=== PATIENT | male | born 1970 | race Caucasian/White ===

== ENCOUNTER 2016-10-09 20:57 | Emergency (ER) | payer OTHER ==
[2016-10-09] MEDS ORDERED: diphenhydrAMINE 50 MG/ML 1 ML VIAL IVP STA (21:13)
[2016-10-09] MEDS ORDERED: methylPREDNISolone SOD SUCCI 125 MG/2 ML VIAL IV STA (21:14)
[2016-10-09] MEDS ORDERED: FAMOTIDINE 20 MG/2 ML VIAL IV STA (21:14)
[2016-10-09 21:23] VITALS: TEMP 98
--- NOTE | 2016-10-09 21:37 | ED ---
Allergic Reaction HPI - General Chief complaint: Allergic Reaction Stated complaint: allergic reaction Time Seen by Provider: 10/09/16 21:12 Source: patient Mode of arrival: ambulatory Limitations: no limitations - History of Present Illness Initial Comments: Patient presents with complaint of ALLERGIC reaction. He was exposed to peanut far. He is ALLERGIC to peanuts. He has some trouble breathing, but no tongue or lip swelling. He has no belly or back pain. He has no chest pain or tenderness. He has no lightheadedness or dizziness. He has no neck pain. He has no rashes. He has taken no medication for this. - Related Data Previous Rx's Medication Instructions Recorded Famotidine [Pepcid] 20 mg PO DAILY #4 tablet 10/09/16 diphenhydrAMINE [Benadryl] 50 mg PO TID #15 capsule 10/09/16 predniSONE 50 mg PO DAILY #4 tab 10/09/16 Allergies Allergy/AdvReac Type Severity Reaction Status Date / Time codeine Allergy Anaphylaxis Verified 10/09/16 21:03 floxacillin Allergy Anaphylaxis Verified 10/09/16 21:03 peanut Allergy Anaphylaxis Verified 10/09/16 21:03 shellfish derived [Shellfish] Allergy Anaphylaxis Verified 10/09/16 21:03 Review of Systems ROS Statement: Those systems with pertinent positive or pertinent negative responses have been documented in the HPI. ROS Other: All systems not noted in ROS Statement are negative. Past Medical History Additional Past Medical History / Comment(s): seasonal allergies History of Any Multi-Drug Resistant Organisms: None Reported Past Surgical History: No Surgical Hx Reported Past Psychological History: No Psychological Hx Reported Smoking Status: Never smoker Past Alcohol Use History: None Reported Past Drug Use History: None Reported General Exam Limitations: no limitations General appearance: alert, in no apparent distress Head exam: Present: atraumatic, normocephalic, normal inspection Eye exam: Present: normal appearance, PERRL, EOMI. Absent: scleral icterus, conjunctival injection, periorbital swelling ENT exam: Present: normal exam, mucous membranes moist Neck exam: Present: normal inspection. Absent: tenderness, meningismus, lymphadenopathy Respiratory exam: Present: normal lung sounds bilaterally. Absent: respiratory distress, wheezes, rales, rhonchi, stridor Cardiovascular Exam: Present: regular rate, normal rhythm, normal heart sounds. Absent: systolic murmur, diastolic murmur, rubs, gallop, clicks GI/Abdominal exam: Present: soft, normal bowel sounds. Absent: distended, tenderness, guarding, rebound, rigid Extremities exam: Present: normal inspection, full ROM, normal capillary refill. Absent: tenderness, pedal edema, joint swelling, calf tenderness Back exam: Present: normal inspection Neurological exam: Present: alert, oriented X3, CN II-XII intact Psychiatric exam: Present: normal affect, normal mood Skin exam: Present: warm, dry, intact, normal color. Absent: rash Course Vital Signs 10/09/16 10/09/16 20:58 21:19 Temperature 98.2 F 98.0 F Pulse Rate 98 80 Respiratory 20 24 Rate Blood Pressure 148/88 145/99 O2 Sat by Pulse 98 97 Oximetry Medical Decision Making - Medical Decision Making Patient complains of ALLERGIC reaction. He is treated with IV Benadryl, steroids, Pepcid. He is feeling better. He is stable for discharge. Disposition Clinical Impression: Allergic reaction Disposition: HOME SELF-CARE Condition: Good Instructions: Allergies (ED) Prescriptions: Famotidine [Pepcid] 20 mg PO DAILY #4 tablet diphenhydrAMINE [Benadryl] 50 mg PO TID #15 capsule predniSONE 50 mg PO DAILY #4 tab Time of Disposition: 21:37
[2016-10-09 22:33] VITALS: BP 120/82; PULSE 74; RESP 20
== END 2016-10-09 22:45 | disposition home or self-care (01) ==
LOC: EC 20:57
DX: T78.1XXA Other adverse food reactions, not elsewhere classified, initial encounter (principal); X58.XXXA Exposure to other specified factors, initial encounter; Z79.899 Other long term (current) drug therapy; Z88.0 Allergy status to penicillin; Z88.5 Allergy status to narcotic agent; Z91.013 Allergy to seafood; Z91.010 Allergy to peanuts
CPT/HCPCS: 96374; 96375; 99283; J1200; J2930

== ENCOUNTER → 2020-05-22 | Outpatient (CLI) | payer BC | END | disposition home or self-care (01) | LOC: LABWHC1 14:20 | PROVIDERS: ATTEND Family Medicine | DX: Z20.828 Contact with and (suspected) exposure to other viral communicable diseases (principal) | CPT/HCPCS: U0003; C9803 ==

== ENCOUNTER → 2022-06-13 | Outpatient (CLI) | payer BC ==
--- NOTE | 2022-06-13 12:41 | CA ---
Exercise Stress Test Report Name: Toya Lima Exam Date: 06/13/2022 08:54 Exam Location: [place] Stress Ht (in): 73 Wt (lb): 205 BSA: 2.17 Ordering Phys: Katalina Silva MD Referring Phys: aaron, Technologist: Trent Powers Age: 51 Gender: M : 1970 Procedure CPT: Indications: R07.89 Chest pain R06.02 Shortness of breath ICD-10 Codes: Patient History: Shortness of breath Medications: Meds past 24 hrs: Pretest Chest Pain: STRESS TEST Alban Protocol Exercise Duration (min:sec): 10:[address] Depressions (mm): Angina Score: Hastings Score: Resting HR (bpm): 77 Peak HR (bpm): 173 Resting BP (mmHg): 115 / 89 Peak BP (mmHg): 171 / 89 MPHR: 169 Target HR: 144 % MPHR: 102 METS: 12.1 Total Dose: Peak Dose: Atropine: Double Product: 37421 BP Response: Stress Termination: Reached target heart rate Stress Symptoms: No chest pain or symptoms Stress Summary: ECG ANALYSIS Resting ECG: Stress ECG: CONCLUSIONS Patient underwent exercise stress EKG with a Alban protocol treadmill stress test. Patient exercised into Stage 3 for a total of 10 minutes reaching a total of 12.1 METS. Patient's maximum heart rate was 173 which represented 100 % age-predicted maximum heart rate. Stress EKG findings: At baseline patient's EKG showed normal sinus rhythm, normal axis, no significant ST or T wave abnormalities. At peak exercise, EKG showed no significant change from baseline. Conclusions: 1. Normal EKG response to exercise without evidence of inducible ischemia. 2. Good exercise capacity. Dr. Matt Torres DO (Electronically Signed) Final Date: 13 June 2022 12:41
== END | disposition home or self-care (01) ==
LOC: RADNMMAIN 08:28
PROVIDERS: ATTEND Family Medicine
DX: R07.89 Other chest pain (principal); R06.02 Shortness of breath
CPT/HCPCS: 93017

== ENCOUNTER 2023-01-16 17:36 | Emergency (ER) | payer BC ==
[2023-01-16] MEDS ORDERED: methylPREDNISolone SOD SUCCI 125 MG/2 ML VIAL IV STA (17:45)
[2023-01-16] MEDS ORDERED: diphenhydrAMINE 50 MG/ML 1 ML VIAL IVP STA (17:45)
[2023-01-16] MEDS ORDERED: FAMOTIDINE 20 MG/2 ML VIAL IV STA (17:45)
[2023-01-16] MEDS ORDERED: SODIUM CHLORIDE 0.9% 1,000 ML IV STA (17:45)
[2023-01-16] MEDS ORDERED: ONDANSETRON 4 MG/2 ML VIAL IVP STA (17:46)
[2023-01-16 18:22] LABS: Basophils % (A) 1 %; Eosinophils # (A) 0.2 k/uL (0-0.7); Eosinophils % (A) 2 %; HCT 45.9 % (39.0-53.0); HGB 15.5 gm/dL (13.0-17.5); Lymphocytes # (A) 2.7 k/uL (1.0-4.8); Lymphocytes % (A) 32 %; MCH 30.9 pg (25.0-35.0); MCHC 33.7 g/dL (31.0-37.0); MCV 91.6 fL (80.0-100.0); Mean Platelet Volume 7.2; Monocytes # (A) 0.5 k/uL (0-1.0); Monocytes % (A) 5 %; Neutrophils # (A) 4.8 k/uL (1.3-7.7); Neutrophils % (A) 58 %; Platelet Count 301 k/uL (150-450); RBC 5.01 m/uL (4.30-5.90); RDW 12.4 % (11.5-15.5); WBC 8.4 k/uL (3.8-10.6)
[2023-01-16 18:33] LABS: African American GFR (CKD) >90 (>60 ml/min/1.73 sqM); Anion Gap 14 mmol/L; Blood Urea Nitrogen 17 mg/dL (9-20); Calcium 9.3 mg/dL (8.4-10.2); Carbon Dioxide 23 mmol/L (22-30); Chloride 102 mmol/L (98-107); Glucose 86 mg/dL (74-99); Non-African American GFR(CKD) 89 (>60 ml/min/1.73 sqM); Potassium 4.1 mmol/L (3.5-5.1); Sodium 139 mmol/L (137-145)
--- NOTE | 2023-01-16 18:45 | XR ---
EXAMINATION TYPE: XR chest 1V portable DATE OF EXAM: 01/16/2023 COMPARISON: None INDICATION: Difficulty breathing TECHNIQUE: Single frontal view of the chest is obtained. FINDINGS: The heart size is normal. The pulmonary vasculature is normal. The lungs are clear. IMPRESSION: 1. No acute pulmonary process.
[2023-01-16 21:04] VITALS: RESP 18
--- NOTE | 2023-01-16 21:10 | ED ---
General Adult HPI - General Chief complaint: Allergic Reaction Stated complaint: allergic reaction Time Seen by Provider: 01/16/23 17:45 Source: patient, RN notes reviewed, old records reviewed Mode of arrival: wheelchair Limitations: no limitations - History of Present Illness Initial comments: Patient is a 52-year-old male with past medical history remarkable for anaphylaxis and peanut ALLERGY, who presents emergency department over concern for anaphylaxis at this time. States he was ordering food from a restaurant where he requested not having any knots but it turns out that the meat was coated in peanut butter for marinade. He ate some, and began having a tingly, itching feeling inside of his mouth until his tongue swelled up. Also is having some nausea as well as itching over the face, chest, hands. Immediately came to the emergency department for evaluation. States this is happened previously and is required medications here in the department but has never required admission or intubation. Denies any chest pain. Denies any abdominal pain but does endorse nausea. Denies any rashes. Endorses some tongue swelling. Denies dif ficulty breathing. Has no other acute complaints this time. States he does have EpiPen at home but did not use one. Presents for further evaluation at this time. - Related Data Home Medications Medication Instructions Recorded Confirmed Cetirizine HCl [Zyrtec] 10 mg PO DAILY 10/09/16 10/09/16 Previous Rx's Medication Instructions Recorded EPINEPHrine [Epipen 2-William] 0.3 mg IJ ONCE #1 auto.injct 10/09/16 Famotidine [Pepcid] 20 mg PO DAILY #4 tablet 10/09/16 diphenhydrAMINE [Benadryl] 50 mg PO TID #15 capsule 10/09/16 predniSONE 50 mg PO DAILY #4 tab 10/09/16 EPINEPHrine (Auto Inject) [Epipen] 0.3 mg IM ONCE PRN #1 each 01/16/23 Famotidine 40 mg PO DAILY 7 Days #7 tablet 01/16/23 predniSONE [Deltasone] 40 mg PO DAILY 4 Days #8 tab 01/16/23 Allergies Allergy/AdvReac Type Severity Reaction Status Date / Time codeine Allergy Anaphylaxis Verified 01/16/23 17:40 peanut Allergy Anaphylaxis Verified 01/16/23 17:40 Quinolones Allergy Anaphylaxis Verified 01/16/23 17:40 shellfish derived [Shellfish] Allergy Anaphylaxis Verified 01/16/23 17:40 Review of Systems ROS Statement: Those systems with pertinent positive or pertinent negative responses have been documented in the HPI. Review of Systems: CONST: Denies fever EYES: Denies blurry vision ENT: Endorses tongue swelling C/V: Denies Chest pain RESP: Denies shortness of breath GI: Endorses nausea : Denies dysuria SKIN: Denies rash. MSK: Denies joint pain. NEURO: Denies headache ROS Other: All systems not noted in ROS Statement are negative. Past Medical History Additional Past Medical History / Comment(s): seasonal allergies History of Any Multi-Drug Resistant Organisms: None Reported Past Surgical History: No Surgical Hx Reported Past Psychological History: No Psychological Hx Reported Smoking Status: Never smoker Past Alcohol Use History: Occasional Past Drug Use History: None Reported General Exam - General Exam Comments Initial Comments: General: Appears in mild distress. HEAD: Normal with no signs of head trauma. EYES: PERRLA, EOMI, conjunctiva normal, no discharge. ENT: Hearing grossly intact. Some mild tongue edema but no posterior oropharyngeal edema. Uvula is midline. No stridor. RESPIRATORY: Clear breath sounds bilaterally. No wheezes, rales, or rhonchi. No hypoxia. No increased work of breathing. C/V: Mild tachycardia. S1 and S2 auscultated, no edema, peripheral pulses 2+ and intact throughout ABD: Abd is soft, nontender, nondistended EXT: Normal range of motion, no obvious deformity SKIN: No rashes or lesions observed on exposed skin. NEURO: Alert and oriented 4. Limitations: no limitations Course Vital Signs 01/16/23 01/16/23 01/16/23 17:37 18:12 19:25 Temperature 97.6 F Pulse Rate 103 H 90 Pulse Rate [ 110 H Retail Associate ] Respiratory 20 18 Rate Blood Pressure 168/94 145/98 O2 Sat by Pulse 100 100 Oximetry 01/16/23 01/16/23 01/16/23 19:37 20:00 21:26 Temperature 98.3 F Pulse Rate 96 93 72 Pulse Rate [ Retail Associate ] Respiratory 16 18 18 Rate Blood Pressure 136/91 139/90 121/77 O2 Sat by Pulse 96 99 99 Oximetry Medical Decision Making - Medical Decision Making Was pt. sent in by a medical professional or institution (, PA, [employer]ER, urgent care, hospital, or correction...) When possible be specific @ -No Did you speak to anyone other than the patient for history (EMS, parent, family, police, friend...)? What history was obtained from this source @ -No Did you review nursing and triage notes (agree or disagree)? Why? @ -I reviewed and agree with nursing and triage notes Were old charts reviewed (outside hosp., previous admission, EMS record, old EKG, old radiological studies, urgent care reports/EKG's, correction records)? Report findings @ -No old charts were reviewed Differential Diagnosis (chest pain, altered mental status, abdominal pain women, abdominal pain men, vaginal bleeding, weakness, fever, dyspnea, syncope, headache, dizziness, GI bleed, back pain, seizure, CVA, palpatations, mental health, musculoskeletal)? @ -ALLERGIC reaction, anaphylaxis, electrolyte abnormality. This list is not all inclusive. EKG interpreted by me (3pts min.). @ -As above X-rays interpreted by me (1pt min.). @ -Chest x-ray shows no obvious acute cardio pulmonary process. CT interpreted by me (1pt min.). @ -None done U/S interpreted by me (1pt. min.). @ -None done What testing was considered but not performed or refused? (CT, X-rays, U/S, labs)? Why? @ -None What meds were considered but not given or refused? Why? @ -None Did you discuss the management of the patient with other professionals (professionals i.e. , PA, [employer]ER, lab, RT, psych nurse, social problems specialist, scientist, teacher, correctional officer lieutenant, case aide)? Give summary @ -No Was smoking cessation discussed for >3mins.? @ -No Was critical care preformed (if so, how long)? @ -Yes, 35 minutes. Were there social determinants of health that impacted care today? How? (Homelessness, low income, unemployed, alcoholism, drug addiction, transportation, low edu. Level, literacy, decrease access to med. care, [facility], rehab)? @ -No Was there de-escalation of care discussed even if they declined (Discuss DNR or withdrawal of care, Hospice)? DNR status @ -No What co-morbidities impacted this encounter? (DM, HTN, Smoking, COPD, CAD, Cancer, CVA, ARF, Chemo, Hep., AIDS, mental health diagnosis, sleep apnea, morbid obesity)? @ -Peanut ALLERGY Was patient admitted / discharged? Hospital course, mention meds given and route, prescriptions, significant lab abnormalities, going to OR and other pertinent info. @ -Based on the patient's presentation and physical exam, he has an itchy sensation over his skin, as well as nausea. No respiratory symptoms at this time. But as it involves to working groups does call ciprofloxacin patient will be administered subcu appendectomy in addition to IV fluids, famotidine, Zofran, Benadryl, Solu-Medrol. Vital signs within acceptable limits at this time. Patient was in agreement this plan. We will obtain basic labs, chest x-ray, screening EKG. Imaging unremarkable. EKG unremarkable. Labs are within acceptable limits. On reevaluation, patient is feeling improved. Symptoms have resolved. He states he feels somewhat jittery which is typical after he receives an EpiPen. We will observe the patient for at least 3 hours here in the department. He was in agreement this plan. On 3 hour observation, patient remains asymptomatic. Has not required re-dosing medications. He'll be discharged home at this time. I will place him on a prednisone prescription in addition to famotidine and a new EpiPen. He has [id number] Benadryl at home. Strict return precautions discussed. Patient was in agreement this plan. I will provide the patient with a prescription for famotidine, prednisone, EpiPen. I instructed the patient to follow up with their PCP in the next 1-3 days. I explained that the patient should return to the emergency department if they experience any worsening symptoms. Strict return precautions were discussed with the patient. The patient expressed understanding of these instructions. I answered all questions that the patient had. The patient was discharged home in good condition with their prescriptions and follow up information. Undiagnosed new problem with uncertain prognosis? @ -No Drug Therapy requiring intensive monitoring for toxicity (Heparin, Nitro, Insulin, Cardizem)? @ -No Were any procedures done? @ -No Diagnosis/symptom? @ -ALLERGIC reaction, anaphylaxis Acute, or Chronic, or Acute on Chronic? @ -Acute Uncomplicated (without systemic symptoms) or Complicated (systemic symptoms)? @ -Complicated Side effects of treatment? @ -No Exacerbation, Progression, or Severe Exacerbation? @ -No Poses a threat to life or bodily function? How? (Chest pain, [place], NH, pneumonia, PE, COPD, DKA, ARF, appy, cholecystitis, CVA, Diverticulitis, Homicidal, Suicidal, threat to staff... and all critical care pts) @ -Yes, if untreated. - Lab Data Result diagrams: 01/16/23 18:06 01/16/23 18:06 Lab Results 01/16/23 01/16/23 Range/Units 18:06 18:06 WBC 8.4 (3.8-10.6) k/uL RBC 5.01 (4.30-5.90) m/uL Hgb 15.5 (13.0-17.5) gm/dL Hct 45.9 (39.0-53.0) % MCV 91.6 (80.0-100.0) fL MCH 30.9 (25.0-35.0) pg MCHC 33.7 (31.0-37.0) g/dL RDW 12.4 (11.5-15.5) % Plt Count 301 (150-450) k/uL MPV 7.2 Neutrophils % 58 % Lymphocytes % 32 % Monocytes % 5 % Eosinophils % 2 % Basophils % 1 % Neutrophils # 4.8 (1.3-7.7) k/uL Lymphocytes # 2.7 (1.0-4.8) k/uL Monocytes # 0.5 (0-1.0) k/uL Eosinophils # 0.2 (0-0.7) k/uL Basophils # 0.0 (0-0.2) k/uL Sodium 139 (137-145) mmol/L Potassium 4.1 (3.5-5.1) mmol/L Chloride 102 (98-107) mmol/L Carbon Dioxide 23 (22-30) mmol/L Anion Gap 14 mmol/L BUN 17 (9-20) mg/dL Creatinine 0.98 (0.66-1.25) mg/dL Est GFR (CKD-EPI)AfAm >90 (>60 ml/min/1.73 sqM) Est GFR (CKD-EPI)NonAf 89 (>60 ml/min/1.73 sqM) Glucose 86 (74-99) mg/dL Calcium 9.3 (8.4-10.2) mg/dL - EKG Data -: EKG Interpreted by Me EKG Comments: 12-lead Electrocardiogram Interpretation Note EKG was reviewed and interpreted by myself. 12-lead ECG performed at 1919 is interpreted by me as revealing sinus tachycardia at a rate of 100 beats per minute. [place] is normal. [place] Intervals 161 ms, QRS duration is 93 ms, QTc is 419 ms.. There were no ST or T wave abnormalities to suggest myocardial ischemia or injury. R wave progression across the precordium was satisfactory. By my interpretation this EKG is non-diagnostic for acute ischemia. Disposition Clinical Impression: Allergic reaction, Anaphylaxis Disposition: HOME SELF-CARE Condition: Good Instructions (If sedation given, give patient instructions): Anaphylaxis (ED) Prescriptions: predniSONE [Deltasone] 40 mg PO DAILY 4 Days #8 tab EPINEPHrine (Auto Inject) [Epipen] 0.3 mg IM ONCE PRN #1 each PRN Reason: Anaphylaxis Famotidine 40 mg PO DAILY 7 Days #7 tablet Is patient prescribed a controlled substance at d/c from ED?: No Referrals: Katalina Silva III, MD [Primary Care Provider] - 1-2 days Time of Disposition: 20:52
[2023-01-16 21:26] VITALS: BP 121/77; PULSE 72; TEMP 98.3
== END 2023-01-16 21:27 | disposition home or self-care (01) ==
LOC: EC 17:36
DX: T78.01XA Anaphylactic reaction due to peanuts, initial encounter (principal); Z91.010 Allergy to peanuts; Z91.013 Allergy to seafood; Z88.5 Allergy status to narcotic agent; Z88.8 Allergy status to other drugs, medicaments and biological substances
CPT/HCPCS: 99284; 96374 ×2; 96375 ×4; 96361 ×2; 96372 ×2; 36415; 93005; 80048; 85025; 71045; 99285; J0171; J1200; J2930; J2405

== ENCOUNTER 2023-01-17 06:01 | Emergency (ER) | payer BC ==
--- NOTE | 2023-01-17 06:33 | ED ---
Allergic Reaction HPI - General Chief complaint: Allergic Reaction Stated complaint: Allergic Reaction Time Seen by Provider: 01/17/23 06:04 Source: patient, RN notes reviewed, old records reviewed Mode of arrival: ambulatory Limitations: no limitations - History of Present Illness Initial Comments: This is an anxious 52-year-old male that presents ambulatory with complaints of anaphylaxis. 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 He was given epinephrine steroids and Benadryl at that time then discharged home. States he was prescribed steroids but unable to obtain these medications as pharmacies were closed yesterday. Last night he took another 50 mg of Benadryl and again at 3:00 this morning for itching of his face hands and body with no improvement. Patient states he does feel anxious and he is not sure if he is feeling tingling in his throat. States that he does feel short of breath. No nausea or vomiting. MD Complaint: allergic reaction -: days(s) Exposure: other (peanuts) Symptoms: itching (body, face and hands), difficulty breathing Treatment Prior to Arrival: benadryl (50mg last night and 50mg at 0300 today), other (seen yesterday for same given epi and steroids) Previous Allergy History: anaphylaxis - Related Data Home Medications Medication Instructions Recorded Confirmed Cetirizine HCl [Zyrtec] 10 mg PO DAILY 10/09/16 10/09/16 Previous Rx's Medication Instructions Recorded EPINEPHrine [Epipen 2-William] 0.3 mg IJ ONCE #1 auto.injct 10/09/16 Famotidine [Pepcid] 20 mg PO DAILY #4 tablet 10/09/16 diphenhydrAMINE [Benadryl] 50 mg PO TID #15 capsule 10/09/16 predniSONE 50 mg PO DAILY #4 tab 10/09/16 EPINEPHrine (Auto Inject) [Epipen] 0.3 mg IM ONCE PRN #1 each 01/16/23 Famotidine 40 mg PO DAILY 7 Days #7 tablet 01/16/23 predniSONE [Deltasone] 40 mg PO DAILY 4 Days #8 tab 01/16/23 Allergies Allergy/AdvReac Type Severity Reaction Status Date / Time codeine Allergy Anaphylaxis Verified 01/16/23 17:40 peanut Allergy Anaphylaxis Verified 01/16/23 17:40 Quinolones Allergy Anaphylaxis Verified 01/16/23 17:40 shellfish derived [Shellfish] Allergy Anaphylaxis Verified 01/16/23 17:40 Review of Systems ROS Statement: Those systems with pertinent positive or pertinent negative responses have been documented in the HPI. ROS Other: All systems not noted in ROS Statement are negative. Past Medical History Additional Past Medical History / Comment(s): seasonal allergies History of Any Multi-Drug Resistant Organisms: None Reported Past Surgical History: No Surgical Hx Reported Past Psychological History: No Psychological Hx Reported Smoking Status: Never smoker Past Alcohol Use History: Occasional Past Drug Use History: None Reported General Exam Limitations: no limitations General appearance: alert, in no apparent distress Head exam: Present: atraumatic, normocephalic Eye exam: Present: normal appearance. Absent: scleral icterus, conjunctival injection, periorbital swelling ENT exam: Present: normal oropharynx, mucous membranes moist Neck exam: Present: normal inspection, full ROM. Absent: tenderness, meningismus Respiratory exam: Present: normal lung sounds bilaterally. Absent: respiratory distress, wheezes, accessory muscle use Cardiovascular Exam: Present: tachycardia GI/Abdominal exam: Present: soft Extremities exam: Present: full ROM, normal capillary refill. Absent: pedal edema Neurological exam: Present: alert, oriented X3, CN II-XII intact, normal gait Psychiatric exam: Present: anxious Skin exam: Present: warm, dry, normal color. Absent: cyanosis, diaphoretic, pallor Course Vital Signs 01/17/23 01/17/23 01/17/23 06:11 06:13 07:26 Temperature 97.6 F 98.3 F Pulse Rate 115 H 94 Respiratory 20 22 18 Rate Blood Pressure 122/71 129/82 O2 Sat by Pulse 96 97 Oximetry 01/17/23 08:28 Temperature Pulse Rate 101 H Respiratory 18 Rate Blood Pressure 123/88 O2 Sat by Pulse 98 Oximetry Medical Decision Making - Medical Decision Making Was pt. sent in by a medical professional or institution (, PA, SCREEN STRETCHER, urgent care, hospital, or senior care...) When possible be specific @ -No Did you speak to anyone other than the patient for history (EMS, parent, family, police, friend...)? What history was obtained from this source @ -No Did you review nursing and triage notes (agree or disagree)? Why? @ -I reviewed and agree with nursing and triage notes Were old charts reviewed (outside hosp., previous admission, EMS record, old EKG, old radiological studies, urgent care reports/EKG's, senior care records)? Report findings @ -Yesterday ER visit notes reviewed Differential Diagnosis (chest pain, altered mental status, abdominal pain women, abdominal pain men, vaginal bleeding, weakness, fever, dyspnea, syncope, headache, dizziness, GI bleed, back pain, seizure, CVA, palpatations, mental health, musculoskeletal)? @ -Anaphylaxis, anxiety, adverse drug reaction EKG interpreted by me (3pts min.). @ -n/a X-rays interpreted by me (1pt min.). @ -None done CT interpreted by me (1pt min.). @ -None done U/S interpreted by me (1pt. min.). @ -None done What testing was considered but not performed or refused? (CT, X-rays, U/S, labs)? Why? @ -None What meds were considered but not given or refused? Why? @ -Epinephrine was considered however patient denies any difficulty in breathing at this time, no signs of anaphylaxis. Did you discuss the management of the patient with other professionals (professionals i.e. , PA, SCREEN STRETCHER, lab, RT, psych nurse, adoption social worker, silviculture teacher, teacher, command center officer, family caseworker)? Give summary @ -No Was smoking cessation discussed for >3mins.? @ -No Was critical care preformed (if so, how long)? @ -No Were there social determinants of health that impacted care today? How? (Homelessness, low income, unemployed, alcoholism, drug addiction, transportation, low edu. Level, literacy, decrease access to med. care, correction, rehab)? @ -No Was there de-escalation of care discussed even if they declined (Discuss DNR or withdrawal of care, Hospice)? DNR status @ -No What co-morbidities impacted this encounter? (DM, HTN, Smoking, COPD, CAD, Cancer, CVA, ARF, Chemo, Hep., AIDS, mental health diagnosis, sleep apnea, morbid obesity)? @ -Anxiety Was patient admitted / discharged? Hospital course, mention meds given and route, prescriptions, significant lab abnormalities, going to OR and other pertinent info. @ -Discharged. Patient was seen for anaphylaxis from peanut ALLERGY yesterday. States that he woke up this morning feeling symptoms returning. He did take 50 mg of Benadryl last night and again 50 mg at 3:00 this morning. He states that he is anxious and is not sure if he feels tingling in his mouth and throat. He did not use his EpiPen. He states he was given epinephrine and steroids yesterday while in the hospital. He did not get the medication filled as the pharmacies were closed when he left the hospital yesterday. Patient was given Pepcid and Solu-Medrol in the emergency room with resolution of his symptoms. He was directed not to take more than 50 mg of Benadryl every 6 hours. This is likely the cause of his symptoms in addition to his ALLERGIC reaction to peanuts yesterday. Patient also admits to having some anxiety over anaphylaxis. He denies any chest pain, nausea vomiting or difficulty breathing at this time. Vital signs are stable. He was prescribed Pepcid and prednisone yesterday was directed to fill these prescriptions at the pharmacy today. Start the prednisone tomorrow as he was given a dose of Solu-Medrol today. Patient states understanding. Case discussed with Dr. Mccabe. Undiagnosed new problem with uncertain prognosis? @ -No Drug Therapy requiring intensive monitoring for toxicity (Heparin, Nitro, Insulin, Cardizem)? @ -No Were any procedures done? @ -No Diagnosis/symptom? @ -ALLERGIC reaction Acute, or Chronic, or Acute on Chronic? @ -Acute Uncomplicated (without systemic symptoms) or Complicated (systemic symptoms)? @ -Uncomplicated Side effects of treatment? @ -No Exacerbation, Progression, or Severe Exacerbation? @ -No Poses a threat to life or bodily function? How? (Chest pain, [place], [place], pneumonia, PE, COPD, DKA, ARF, appy, cholecystitis, CVA, Diverticulitis, Homicidal, Suicidal, threat to staff... and all critical care pts) @ -No Disposition Clinical Impression: Allergic reaction Disposition: HOME SELF-CARE Condition: Good Instructions (If sedation given, give patient instructions): Anaphylaxis (ED) Additional Instructions: Increase your fluid intake. Take Pepcid twice a day and prednisone once a day as prescribed yesterday. Do not start the prednisone until Thursday as your were given a dose of Solu-Medrol in the emergency room again today. He can take Benadryl 25-50 mg every 6 hours as needed. Do not exceed this dosing. If difficulty breathing or sensation of throat closing please use your EpiPen and come to the emergency room for reevaluation. For wheezing please use your albuterol inhaler. If any new or concerning symptoms return to the emergency room. Is patient prescribed a controlled substance at d/c from ED?: No Referrals: Katalina Silva III, MD [Primary Care Provider] - 1-2 days Time of Disposition: 08:15
[2023-01-17] MEDS ORDERED: FAMOTIDINE 20 MG/2 ML VIAL IV STA (06:36)
[2023-01-17] MEDS ORDERED: methylPREDNISolone SOD SUCCI 125 MG/2 ML VIAL IV STA (06:54)
[2023-01-17 07:28] VITALS: RESP 18; TEMP 98.3
[2023-01-17 08:30] VITALS: BP 123/88; PULSE 101
== END 2023-01-17 08:30 | disposition home or self-care (01) ==
LOC: EC 06:01
DX: T78.2XXA Anaphylactic shock, unspecified, initial encounter (principal); Z88.5 Allergy status to narcotic agent; Z91.010 Allergy to peanuts; Z91.013 Allergy to seafood; Z88.8 Allergy status to other drugs, medicaments and biological substances
CPT/HCPCS: 99283; 96374; 96375; J2930

== ENCOUNTER 2024-10-17 20:23 | Emergency (ER) | payer BC ==
[2024-10-17 20:36] VITALS: RESP 16; TEMP 98.4
--- NOTE | 2024-10-17 21:05 | ED ---
Eye Problem HPI - General Chief complaint: Eye Problems Stated complaint: Blurry Vision Time Seen by Provider: 10/17/24 20:38 Source: patient Mode of arrival: ambulatory Limitations: no limitations - History of Present Illness Initial comments: 54-year-old male presenting with chief complaint of headache and vision disturbance. Patient reports that for the last 2 nights around 6:30 PM he has had a pressure-like headache over the sinus region that is worse when he coughs. He has also had about 30 minutes worth of blurred vision over the peripheral p ortion of the right eye. He describes this as though he is looking through a prism through the side of his eye. He has had no vision loss. His vision later returns to normal. Patient does wear contacts or glasses daily. He is having no eyeball pain. No redness or injuries. Tearing or discharge. No chest pain. He states that he had some mild shortness of breath this evening but he thinks it may have been due to anxiety. No nausea vomiting or abdominal pain. No numbness tingling or weakness. He states that he recently finished a course of steroids and is still currently on an antibiotic prescribed to him for his persistent sinus pressure. - Related Data Home Medications Medication Instructions Recorded Confirmed Cetirizine HCl [Zyrtec] 10 mg PO DAILY 10/09/16 10/09/16 Previous Rx's Medication Instructions Recorded EPINEPHrine [Epipen 2-William] 0.3 mg IJ ONCE #1 auto.injct 10/09/16 Famotidine [Pepcid] 20 mg PO DAILY #4 tablet 10/09/16 diphenhydrAMINE [Benadryl] 50 mg PO TID #15 capsule 10/09/16 predniSONE 50 mg PO DAILY #4 tab 10/09/16 EPINEPHrine (Auto Inject) [Epipen] 0.3 mg IM ONCE PRN #1 each 01/16/23 Famotidine 40 mg PO DAILY 7 Days #7 tablet 01/16/23 predniSONE [Deltasone] 40 mg PO DAILY 4 Days #8 tab 01/16/23 Allergies Allergy/AdvReac Type Severity Reaction Status Date / Time codeine Allergy Anaphylaxis Verified 10/17/24 20:36 peanut Allergy Anaphylaxis Verified 10/17/24 20:36 Quinolones Allergy Anaphylaxis Verified 10/17/24 20:36 shellfish derived [Shellfish] Allergy Anaphylaxis Verified 10/17/24 20:36 Review of Systems ROS Statement: Those systems with pertinent positive or pertinent negative responses have been documented in the HPI. ROS Other: All systems not noted in ROS Statement are negative. Past Medical History Additional Past Medical History / Comment(s): seasonal allergies History of Any Multi-Drug Resistant Organisms: None Reported Past Surgical History: No Surgical Hx Reported Past Psychological History: No Psychological Hx Reported Smoking Status: Never smoker Past Alcohol Use History: Occasional Past Drug Use History: None Reported General Exam Limitations: no limitations General appearance: alert, in no apparent distress Head exam: Present: atraumatic, normocephalic, normal inspection Eye exam: Present: normal appearance, PERRL, EOMI. Absent: conjunctival injection, periorbital swelling Pupils: Present: normal accommodation Expanded Eyelids: Normal Inspection: Bilateral Pupils: Regular, Round: Bilateral, Reactive: Bilateral Sclera/Conjunctival: Normal Inspection: Bilateral IOP (R) in mmH IOP (L) in mmH Neck exam: Present: normal inspection. Absent: meningismus Respiratory exam: Present: normal lung sounds bilaterally. Absent: respiratory distress, wheezes, rales, rhonchi, stridor Cardiovascular Exam: Present: regular rate, normal rhythm, normal heart sounds. Absent: systolic murmur, diastolic murmur, rubs, gallop, clicks Neurological exam: Present: alert, oriented X3 Expanded Patient oriented to: Present: person, place, time Speech: Present: fluid speech Cranial nerves: EOM's Intact: Normal Cerebellar function: Finger to Nose: Normal, Heel to [place]: Normal Eye Response: (4) open spontaneously Motor Response: (6) obeys commands Verbal Response: (5) oriented Mauricio Total: 15 Psychiatric exam: Present: normal affect, normal mood Skin exam: Present: warm, dry, normal color Course Vital Signs 10/17/24 10/17/24 10/17/24 20:32 21:30 23:16 Temperature 98.4 F Pulse Rate 82 76 77 Respiratory 16 18 16 Rate Blood Pressure 153/93 140/86 126/79 O2 Sat by Pulse 99 99 99 Oximetry Medical Decision Making - Medical Decision Making Sinus rhythm ventricular rate 68. NH interval 159. QRS 93. QT 392. QTc 410 Was pt. sent in by a medical professional or institution (, PA, BILINGUAL KINDERGARTEN TEACHER, urgent care, hospital, or assisted...) When possible be specific @ -No Did you speak to anyone other than the patient for history (EMS, parent, family, police, friend...)? What history was obtained from this source @ -No Did you review nursing and triage notes (agree or disagree)? Why? @ -I reviewed and agree with nursing and triage notes Were old charts reviewed (outside hosp., previous admission, EMS record, old EKG, old radiological studies, urgent care reports/EKG's, assisted records)? Report findings @ -No old charts were reviewed Differential Diagnosis (chest pain, altered mental status, abdominal pain women, abdominal pain men, vaginal bleeding, weakness, fever, dyspnea, syncope, headache, dizziness, GI bleed, back pain, seizure, CVA, palpatations, mental h ealth, musculoskeletal)? @ -Differential includes retinal detachment/thinning, intracranial hemorrhage, intracranial mass, CVA, TIA, ocular migraine, not an all-inclusive list EKG interpreted by me (3pts min.). @ -As above X-rays interpreted by me (1pt min.). @ -None done CT interpreted by me (1pt min.). @ -CT shows no acute intracranial abnormality U/S interpreted by me (1pt. min.). @ -None done What testing was considered but not performed or refused? (CT, X-rays, U/S, labs)? Why? @ -None What meds were considered but not given or refused? Why? @ -None Did you discuss the management of the patient with other professionals (professionals i.e. , PA, BILINGUAL KINDERGARTEN TEACHER, lab, RT, psych nurse, clinical social work therapist, veneer slicing machine operator, teacher, vice squad police officer, case worker)? Give summary @ -No Was smoking cessation discussed for >3mins.? @ -No Was critical care preformed (if so, how long)? @ -No Were there social determinants of health that impacted care today? How? (Homelessness, low income, unemployed, alcoholism, drug addiction, transportation, low edu. Level, literacy, decrease access to med. care, fci, rehab)? @ -No Was there de-escalation of care discussed even if they declined (Discuss DNR or withdrawal of care, Hospice)? DNR status @ -No What co-morbidities impacted this encounter? (DM, HTN, Smoking, COPD, CAD, Cancer, CVA, ARF, Chemo, Hep., AIDS, mental health diagnosis, sleep apnea, morbid obesity)? @ -None Was patient admitted / discharged? Hospital course, mention meds given and route , prescriptions, significant lab abnormalities, going to OR and other pertinent info. @ -54-year-old male presenting with chief complaint of headache and blurred vision in the periphery of his right eye. This occurred a separate episodes in the evening for the past 2 nights. History and physical examination are conducted. GCS is 15 with no focal neurological deficits. Lab work is grossly unremarkable. CT is negative for acute intracranial process. Patient refused CTA as he was concerned about shellfish allergy and family history of iodine allergy. On reassessment patient is feeling well showing no acute signs of distress. He is educated on today's findings. I offered admission, patient would prefer to follow-up outpatient which I believe is reasonable. He is instructed to follow-up with his PCP as he may need an MRI. He is also instructed to follow-up with ophthalmology. Follow-up with PCP. Report back to ER with any new or worsening symptoms. Discussed return parameters and answered all questions. Patient conveyed verbal understanding and agreed to the plan. I discussed this case in detail with my attending Dr. Prieto Undiagnosed new problem with uncertain prognosis? @ -No Drug Therapy requiring intensive monitoring for toxicity (Heparin, Nitro, Insulin, Cardizem)? @ -No Were any procedures done? @ -No Diagnosis/symptom? @ -Blurred vision Acute, or Chronic, or Acute on Chronic? @ -Acute Uncomplicated (without systemic symptoms) or Complicated (systemic symptoms)? @ -Uncomplicated Side effects of treatment? @ -No Exacerbation, Progression, or Severe Exacerbation? @ -No Poses a threat to life or bodily function? How? (Chest pain, [place], [place], pneumonia, PE, COPD, DKA, ARF, appy, cholecystitis, CVA, Diverticulitis, Homicidal, Suicidal, threat to staff... and all critical care pts) @ -Low likelihood - Lab Data Result diagrams: 10/17/24 21:37 10/17/24 21:37 Lab Results 10/17/24 10/17/24 10/17/24 Range/Units 21:37 21:37 21:37 WBC 8.7 (3.8-10.6) k/uL RBC 4.94 (4.30-5.90) m/uL Hgb 15.0 (13.0-17.5) gm/dL Hct 45.7 (39.0-53.0) % MCV 92.5 (80.0-100.0) fL MCH 30.4 (25.0-35.0) pg MCHC 32.9 (31.0-37.0) g/dL RDW 12.6 (11.5-15.5) % Plt Count 299 (150-450) k/uL MPV 6.8 Neutrophils % 51 % Lymphocytes % 37 % Monocytes % 8 % Eosinophils % 2 % Basophils % 1 % Neutrophils # 4.4 (1.3-7.7) k/uL Lymphocytes # 3.2 (1.0-4.8) k/uL Monocytes # 0.7 (0-1.0) k/uL Eosinophils # 0.2 (0-0.7) k/uL Basophils # 0.1 (0-0.2) k/uL PT 10.4 (10.0-12.5) sec INR 0.9 (<1.2) APTT 22.1 (22.0-30.0) sec Sodium 139 (137-145) mmol/L Potassium 4.0 (3.5-5.1) mmol/L Chloride 103 (98-107) mmol/L Carbon Dioxide 27 (22-30) mmol/L Anion Gap 9 mmol/L BUN 16 (9-20) mg/dL Creatinine 1.00 (0.66-1.25) mg/dL Est GFR (CKD-EPI)AfAm >90 (>60 ml/min/1.73 sqM) Est GFR (CKD-EPI)NonAf 85 (>60 ml/min/1.73 sqM) Glucose 91 (74-99) mg/dL Calcium 9.4 (8.4-10.2) mg/dL Total Bilirubin 1.0 (0.2-1.3) mg/dL AST 25 (17-59) U/L ALT 27 (4-49) U/L Alkaline Phosphatase 71 (38-126) U/L Troponin I (0.000-0.034) ng/mL Total Protein 6.6 (6.3-8.2) g/dL Albumin 4.2 (3.5-5.0) g/dL Influenza Type A (PCR) (Not Detectd) Influenza Type B (PCR) (Not Detectd) RSV (PCR) (Not Detectd) SARS-CoV-2 (PCR) (Not Detectd) 10/17/24 10/17/24 Range/Units 21:37 21:37 WBC (3.8-10.6) k/uL RBC (4.30-5.90) m/uL Hgb (13.0-17.5) gm/dL Hct (39.0-53.0) % MCV (80.0-100.0) fL MCH (25.0-35.0) pg MCHC (31.0-37.0) g/dL RDW (11.5-15.5) % Plt Count (150-450) k/uL MPV Neutrophils % % Lymphocytes % % Monocytes % % Eosinophils % % Basophils % % Neutrophils # (1.3-7.7) k/uL Lymphocytes # (1.0-4.8) k/uL Monocytes # (0-1.0) k/uL Eosinophils # (0-0.7) k/uL Basophils # (0-0.2) k/uL PT (10.0-12.5) sec INR (<1.2) APTT (22.0-30.0) sec Sodium (137-145) mmol/L Potassium (3.5-5.1) mmol/L Chloride (98-107) mmol/L Carbon Dioxide (22-30) mmol/L Anion Gap mmol/L BUN (9-20) mg/dL Creatinine (0.66-1.25) mg/dL Est GFR (CKD-EPI)AfAm (>60 ml/min/1.73 sqM) Est GFR (CKD-EPI)NonAf (>60 ml/min/1.73 sqM) Glucose (74-99) mg/dL Calcium (8.4-10.2) mg/dL Total Bilirubin (0.2-1.3) mg/dL AST (17-59) U/L ALT (4-49) U/L Alkaline Phosphatase (38-126) U/L Troponin I <0.012 (0.000-0.034) ng/mL Total Protein (6.3-8.2) g/dL Albumin (3.5-5.0) g/dL Influenza Type A (PCR) Not Detected (Not Detectd) Influenza Type B (PCR) Not Detected (Not Detectd) RSV (PCR) Not Detected (Not Detectd) SARS-CoV-2 (PCR) Not Detected (Not Detectd) Disposition Clinical Impression: Blurred vision Disposition: HOME SELF-CARE Condition: Good Instructions (If sedation given, give patient instructions): Blurred Vision (ED) Additional Instructions: Follow-up with PCP and power shovel engineer. Report back to ER with any new or worsening symptoms. Is patient prescribed a controlled substance at d/c from ED?: No Referrals: Salvatore Millan MD [Primary Care Provider] - 1-2 days Margarito Ramirez MD [STAFF PHYSICIAN] - 1-2 days Time of Disposition: 23:18
[2024-10-17 21:48] LABS: Basophils # (A) 0.1 k/uL (0-0.2); Basophils % (A) 1 %; Eosinophils # (A) 0.2 k/uL (0-0.7); Eosinophils % (A) 2 %; HCT 45.7 % (39.0-53.0); Lymphocytes # (A) 3.2 k/uL (1.0-4.8); Lymphocytes % (A) 37 %; MCH 30.4 pg (25.0-35.0); MCHC 32.9 g/dL (31.0-37.0); MCV 92.5 fL (80.0-100.0); Mean Platelet Volume 6.8; Monocytes # (A) 0.7 k/uL (0-1.0); Monocytes % (A) 8 %; Neutrophils # (A) 4.4 k/uL (1.3-7.7); Neutrophils % (A) 51 %; Platelet Count 299 k/uL (150-450); RBC 4.94 m/uL (4.30-5.90); RDW 12.6 % (11.5-15.5); WBC 8.7 k/uL (3.8-10.6)
[2024-10-17] MEDS: SODIUM CHLORIDE 0.9% 1,000 ML IV STA (21:49)
[2024-10-17 22:00] LABS: ALT 27 U/L (4-49); AST 25 U/L (17-59); African American GFR (CKD) >90 (>60 ml/min/1.73 sqM); Albumin 4.2 g/dL (3.5-5.0); Alkaline Phosphatase 71 U/L (38-126); Anion Gap 9 mmol/L; Blood Urea Nitrogen 16 mg/dL (9-20); Calcium 9.4 mg/dL (8.4-10.2); Carbon Dioxide 27 mmol/L (22-30); Chloride 103 mmol/L (98-107); Glucose 91 mg/dL (74-99); Non-African American GFR(CKD) 85 (>60 ml/min/1.73 sqM); Sodium 139 mmol/L (137-145); Total Protein 6.6 g/dL (6.3-8.2)
[2024-10-17 22:04] LABS: INR 0.9 (<1.2); Partial Thromboplastin Time 22.1 sec (22.0-30.0); Prothrombin Time 10.4 sec (10.0-12.5)
[2024-10-17 22:29] LABS: Influenza A Not Detected (Not Detectd); Influenza B Not Detected (Not Detectd); RSV Not Detected (Not Detectd)
--- NOTE | 2024-10-17 22:31 | CT ---
EXAM: CT Head Without Intravenous Contrast CLINICAL HISTORY: ITS.REASON CT Reason: headache, visual disturbance TECHNIQUE: Axial computed tomography images of the head/brain without intravenous contrast. CTDI is 49.2 mGy and DLP is 1174.3 mGy-cm. This CT exam was performed using one or more of the following dose reduction techniques: automated exposure control, adjustment of the mA and/or kV according to patient size, and/or use of iterative reconstruction technique. COMPARISON: No relevant prior studies available. FINDINGS: Brain: No hemorrhage, extra-axial fluid collection, mass effect, or edema. Ventricles: Unremarkable. Bones/joints: Unremarkable. No fracture. Soft tissues: Unremarkable. Sinuses: No acute sinusitis. Mastoid air cells: Unremarkable as visualized. IMPRESSION: 1. No acute intracranial abnormality.
[2024-10-17 23:17] VITALS: BP 126/79; PULSE 77
== END 2024-10-17 23:34 | disposition home or self-care (01) ==
LOC: EC 20:23
DX: H53.8 Other visual disturbances (principal); Z88.5 Allergy status to narcotic agent; Z91.010 Allergy to peanuts; Z91.013 Allergy to seafood; Z88.8 Allergy status to other drugs, medicaments and biological substances
CPT/HCPCS: 36415; 70450; 80053; 84484; 85025; 85610; 85730; 87636; 93005; 96360; 96361; 99284

== ENCOUNTER → 2024-11-08 | Outpatient (CLI) | payer BC ==
--- NOTE | 2024-11-08 12:54 | MR ---
EXAMINATION TYPE: MR brain wo con DATE OF EXAM: 11/08/2024 11:32 AM COMPARISON: CT. CLINICAL INDICATION: Male, 54 years old with history of H53.9 UNSPECIFIED VISUAL DISTURBANCE; PHH, Oc ular Migraine - strong family HX of stroke TECHNIQUE: Multi planar, multi sequence imaging was performed through the brain including: T1, T2, In version recovery, Diffusion weighted imaging, and gradient echo imaging. No gadolinium was given. FINDINGS: The díaz-white junctions, ventricular system, basal cisterns appear unremarkable. . Midline structur es show no abnormality. Diffusion-weighted imaging shows no evidence of restricted diffusion. The sindy ceptibility weighted images do not reveal any evidence for micro-hemorrhage. The bone marrow signal is within normal limits. Paranasal sinuses and mastoid air cells: Mild scattered paranasal sinus disease. Visualized orbits: Orbital contents are intact. IMPRESSION: No evidence of intracranial mass or acute/subacute infarct. [facility] Star Crocker, , 11/08/2024 12:52 PM
== END | disposition home or self-care (01) ==
LOC: RADMRIMAIN 10:59
PROVIDERS: ATTEND Family Medicine
DX: G43.109 Migraine with aura, not intractable, without status migrainosus (principal); H53.9 Unspecified visual disturbance; Z82.3 Family history of stroke
CPT/HCPCS: 70551